=== PATIENT | female | born 1995 | race Caucasian/White ===

== ENCOUNTER 2016-10-25 10:32 | Emergency (ER) | payer OTHER ==
[~2016-10-25] VITALS: Ht 160 cm; Wt 81.7 kg
[~2016-10-25 10:32] MED LIST: BACTRIM DS TAB1 EACH PO; BENTYL 20 MG TA20 M1 PO; BIRTH CONTROL PATCH; DIFLUCAN150 MG PO; MACROBID 100 M100 M1 PO; MOBIC15 MG PO; ONDANSETRON HCL4 M2 PO; PHENERGAN 25 MG25 M1 PO; PROTONIX40 MG PO; TRAMADOL 50 MG50 MG PO; ULTRAM 50MG TAB50 MG PO; ZANTAC 150MG T150 MG PO; ZOFRAN 4 MG ORAL4 MG PO; ZOFRAN ODT4 M1 PO; ZPAK PO
[2016-10-25] MEDS ORDERED: PHENERGAN 25 MG25 M1 PO (10:58)
[2016-10-25 11:08] LABS: ABSOLUTE NEUTROPHILS 10.1 thou/uL (1.4-8.2); BASOPHILS 0.3 % (0.0-2.0); EOSINOPHILS 2.1 % (0.0-3.0); HEMATOCRIT 44.8 % (37.0-47.0); HEMOGLOBIN 14.4 gm/dL (12.0-15.0); LYMPHOCYTES 12.8 % (24.0-44.0); MCH 27.5 pg (26.0-34.0); MCHC 32.1 % (28.0-37.0); MCV 85.4 fL (80.0-100.0); MONOCYTES 5.6 % (1.0-8.0); PLATELET COUNT 267 thou/uL (150-400); POLYS 79.2 % (36.0-66.0); RBC 5.25 mil/uL (4.20-5.00); RDW 14.3 % (10.5-14.5); WBC 12.7 thou/uL (4.0-11.0)
[2016-10-25 11:09] LABS: MANUAL DIFF NO
[2016-10-25 11:17] LABS: CALCIUM 8.7 mg/dL (8.5-10.1); CREATININE 0.8 mg/dL (0.6-1.3); POTASSIUM 3.9 mmol/L (3.5-5.1)
[2016-10-25 11:23] LABS: ALBUMIN 4.1 g/dL (3.4-5.0); TOTAL BILIRUBIN 0.8 mg/dL (<0.1-1.0); TOTAL PROTEIN 8.3 g/dL (6.4-8.2)
[2016-10-25 11:36] LABS: URINE BILIRUBIN NEGATIVE (Negative); URINE BLOOD 1+ (Negative); URINE COLOR YELLOW; URINE GLUCOSE-RANDOM* NEGATIVE (Negative); URINE KETONES NEGATIVE (Negative); URINE NITRITE NEGATIVE (Negative); URINE PROTEIN (DIPSTICK) NEGATIVE (Negative); URINE SPECIFIC GRAVITY >= 1.030 (1.003-1.035); URINE UROBILINOGEN 0.2 E.U./dl (0.2-1.0)
[2016-10-25 11:42] LABS: BACTERIA >30 Many /HPF (None Seen); CASTS None Seen /LPF (None Seen); SQUAMOUS >10 Many /LPF (0-3); URINE RBC 3-10 Few /HPF (0-2); URINE WBC 0-5 Rare /HPF (0-5)
[2016-10-25 11:43] LABS: CRYSTALS None Seen /LPF (None Seen)
[2016-10-25] MEDS ORDERED: KEFLEX500 MG PO (11:44)
[2016-10-25] MEDS ORDERED: LEVSIN0.125 MG PO (11:45)
[2016-10-25 12:01] VITALS: BP 122/78
[2016-11-24] MEDS ORDERED: MUCINEX TA600 MG/TA2 PO (07:19)
[2016-11-24] MEDS ORDERED: AMOXICILLIN 50500 MG PO (07:19)
[2016-11-24] MEDS ORDERED: PREDNISONE 10 M10 MG PO (07:21)
[2016-11-24] MEDS ORDERED: ACETAMINOPHEN-1 EAC1 PO (07:44)
[2016-11-24] MEDS ORDERED: TESSALON PERLE100 MG PO (07:44)
[2016-12-04] MEDS ORDERED: PHENERGAN 25 MG25 M1 PO (00:50)
[2016-12-04] MEDS ORDERED: ZOFRAN ODT4 MG PO (00:50)
== END 2016-10-25 12:02 | disposition home or self-care (01) ==
LOC: ER 10:32
PROVIDERS: Physician Assistant
DX: R11.2 Nausea with vomiting, unspecified (principal); R19.7 Diarrhea, unspecified; R10.9 Unspecified abdominal pain

== ENCOUNTER 2017-02-01 10:00 | Emergency (ER) | payer OTHER ==
[~2017-02-01] VITALS: Ht 160 cm; Wt 45.4 kg
[~2017-02-01 10:00] MED LIST changes: +ACETAMINOPHEN-1 EAC1 PO; +AMOXICILLIN 50500 MG PO; +IBUPROFEN 800800 M1 PO; +KEFLEX500 MG PO; +LEVSIN0.125 MG PO; +MUCINEX TA600 MG/TA2 PO; +NOHOMEMEDICATIONS; +PREDNISONE 10 M10 MG PO; +TESSALON PERLE100 MG PO; +ZOFRAN ODT4 MG PO
[2017-02-01] MEDS ORDERED: BACTRIM DS TAB1 EACH PO (10:29)
[2017-02-01 10:40] VITALS: BP 115/73
== END 2017-02-01 10:41 | disposition home or self-care (01) ==
LOC: ER 10:00
DX: L02.211 Cutaneous abscess of abdominal wall (principal); Z88.6 Allergy status to analgesic agent; W57.XXXA Bitten or stung by nonvenomous insect and other nonvenomous arthropods, initial encounter; Y93.89 Activity, other specified; Y92.89 Other specified places as the place of occurrence of the external cause; Y99.8 Other external cause status

== ENCOUNTER 2017-02-02 22:05 | Emergency (ER) | payer OTHER ==
[~2017-02-02] VITALS: Ht 160 cm; Wt 90.7 kg
[2017-02-02 22:28] LABS: URINE BILIRUBIN NEGATIVE (Negative); URINE BLOOD TRACE (Negative); URINE COLOR YELLOW; URINE GLUCOSE-RANDOM* NEGATIVE (Negative); URINE KETONES NEGATIVE (Negative); URINE NITRITE NEGATIVE (Negative); URINE PROTEIN (DIPSTICK) NEGATIVE (Negative); URINE SPECIFIC GRAVITY >= 1.030 (1.003-1.035); URINE UROBILINOGEN 0.2 E.U./dl (0.2-1.0)
[2017-02-02 22:54] LABS: SQUAMOUS >10 Many /LPF (0-3)
[2017-02-02 22:55] LABS: CASTS None Seen /LPF (None Seen); CRYSTALS None Seen /LPF (None Seen); URINE RBC 0-2 Rare /HPF (0-2); URINE WBC >25 Many /HPF (0-5)
[2017-02-02 23:45] LABS: ABSOLUTE NEUTROPHILS 11.7 thou/uL (1.4-8.2); BASOPHILS 0.2 % (0.0-2.0); EOSINOPHILS 0.6 % (0.0-3.0); HEMATOCRIT 39.2 % (37.0-47.0); HEMOGLOBIN 12.9 gm/dL (12.0-15.0); LYMPHOCYTES 15.3 % (24.0-44.0); MCH 27.6 pg (26.0-34.0); MCHC 32.8 g/dL (28.0-37.0); MCV 84.2 fL (80.0-100.0); MONOCYTES 5.3 % (1.0-8.0); PLATELET COUNT 259 thou/uL (150-400); POLYS 78.6 % (36.0-66.0); RBC 4.66 mil/uL (4.20-5.00); RDW 14.3 % (10.5-14.5); WBC 14.9 thou/uL (4.0-11.0)
[2017-02-02 23:49] LABS: MANUAL DIFF NO
[2017-02-02 23:53] LABS: ANION GAP 7 mmol/L (7-16); BUN 13 mg/dL (7-18); CALCIUM 8.1 mg/dL (8.5-10.1); CHLORIDE 103 mmol/L (98-107); CO2 26 mmol/L (21-32); GLUCOSE 89 mg/dL (74-106); POTASSIUM 3.9 mmol/L (3.5-5.1); SODIUM 136 mmol/L (136-145)
[2017-02-02 23:57] LABS: ALBUMIN 3.7 g/dL (3.4-5.0); ALKALINE PHOSPHATASE 109 U/L (46-116); DIRECT BILIRUBIN < 0.1 mg/dL (<0.1-0.3); SGOT 19 U/L (15-37); SGPT 16 U/L (30-65); TOTAL BILIRUBIN 0.4 mg/dL (<0.1-1.0); TOTAL PROTEIN 7.4 g/dL (6.4-8.2)
[2017-02-03] MEDS ORDERED: ZOFRAN ODT4 MG PO (00:20)
[2017-02-03 01:15] VITALS: BP 97/52
== END 2017-02-03 01:15 | disposition home or self-care (01) ==
LOC: ER 22:05
PROVIDERS: Emergency Medicine
DX: R19.7 Diarrhea, unspecified (principal); R51 Headache; D72.828 Other elevated white blood cell count; R10.9 Unspecified abdominal pain; R11.0 Nausea; Z88.6 Allergy status to analgesic agent

== ENCOUNTER 2017-02-28 07:57 | Emergency (ER) | payer OTHER ==
[~2017-02-28] VITALS: Ht 160 cm; Wt 86.2 kg
[2017-02-28] MEDS ORDERED: BENADRYL25 MG PO (08:07)
[2017-02-28 08:30] VITALS: BP 122/73
[2017-02-28] MEDS ORDERED: PREDNISONE 20 M20 MG PO (08:39)
== END 2017-02-28 08:53 | disposition home or self-care (01) ==
LOC: ER 07:57
DX: L25.9 Unspecified contact dermatitis, unspecified cause (principal); Z88.1 Allergy status to other antibiotic agents

== ENCOUNTER 2017-03-19 21:57 | Emergency (ER) | payer OTHER ==
[~2017-03-19] VITALS: Ht 160 cm; Wt 90.7 kg
[~2017-03-19 21:57] MED LIST changes: +BENADRYL25 MG PO; +PREDNISONE 20 M20 MG PO
[2017-03-19 21:58] VITALS: BP 108/65
[2017-03-19] MEDS ORDERED: BACTRIM DS TAB1 EACH PO (22:10)
== END 2017-03-19 22:11 | disposition home or self-care (01) ==
LOC: ER 21:57
DX: L02.416 Cutaneous abscess of left lower limb (principal); Z88.6 Allergy status to analgesic agent

== ENCOUNTER 2017-06-29 08:31 | Emergency (ER) | payer OTHER ==
[~2017-06-29] VITALS: Ht 160 cm; Wt 89.4 kg
[2017-06-29] MEDS ORDERED: ONDANSETRON HCL4 M2 PO (08:43)
[2017-06-29] MEDS ORDERED: PRENATE ELITE1 EACH PO (08:43)
[2017-06-29] MEDS ORDERED: PROGESTERONE100 MG PO (08:43)
[2017-06-29 09:02] LABS: ABSOLUTE NEUTROPHILS 5.1 thou/uL (1.4-8.2); BASOPHILS 0.7 % (0.0-2.0); EOSINOPHILS 0.6 % (0.0-3.0); HEMOGLOBIN 12.3 gm/dL (12.0-15.0); MCH 28.3 pg (26.0-34.0); MCHC 33.3 g/dL (28.0-37.0); MCV 84.8 fL (80.0-100.0); MONOCYTES 5.8 % (1.0-8.0); PLATELET COUNT 235 thou/uL (150-400); POLYS 63.9 % (36.0-66.0); RBC 4.37 mil/uL (4.20-5.00); RDW 14.8 % (10.5-14.5)
[2017-06-29 09:03] LABS: MANUAL DIFF NO
[2017-06-29 09:10] LABS: CALCIUM 9.1 mg/dL (8.5-10.1); CREATININE 0.9 mg/dL (0.6-1.0); POTASSIUM 3.7 mmol/L (3.5-5.1)
[2017-06-29 09:33] LABS: URINE BILIRUBIN NEGATIVE (Negative); URINE BLOOD 3+ (Negative); URINE COLOR YELLOW; URINE GLUCOSE-RANDOM* NEGATIVE (Negative); URINE KETONES NEGATIVE (Negative); URINE PROTEIN (DIPSTICK) NEGATIVE (Negative); URINE UROBILINOGEN 0.2 E.U./dl (0.2-1.0)
[2017-06-29 09:34] LABS: URINE LEUKOCYTES-REFLEX 1+ (Negative)
[2017-06-29 09:42] LABS: CASTS None Seen /LPF (None Seen); CRYSTALS None Seen /LPF (None Seen); SQUAMOUS 4-10 Moderate /LPF (0-3)
[2017-06-29 09:44] LABS: URINE RBC 0-2 Rare /HPF (0-2); URINE WBC-REFLEX 6-15 Few /HPF (0-5)
[2017-06-29] MEDS ORDERED: KEFLEX500 MG PO (11:33)
[2017-06-29 11:41] VITALS: BP 121/55
[2017-06-30 17:10] LABS: CHLAMYDIA TRACHOMATIS-PCR Negative (Negative); NEISSERIA GONORRHEA-PCR Negative (Negative)
== END 2017-06-29 11:49 | disposition home or self-care (01) ==
LOC: ER 08:31
PROVIDERS: Emergency Medicine
DX: O46.91 Antepartum hemorrhage, unspecified, first trimester (principal); O23.41 Unspecified infection of urinary tract in pregnancy, first trimester; Z3A.08 8 weeks gestation of pregnancy; Z88.6 Allergy status to analgesic agent

== ENCOUNTER 2018-03-08 10:48 | Emergency (ER) | payer OTHER ==
[~2018-03-08] VITALS: Ht 162.6 cm; Wt 79.4 kg
[~2018-03-08 10:48] MED LIST changes: +KEFLEX500 M1 PO; +PRENATE ELITE1 EACH PO; +PROGESTERONE100 MG PO
[2018-03-08] MEDS ORDERED: KEFLEX500 M1 PO (12:15)
[2018-03-08] MEDS ORDERED: PREDNISONE 20 M20 MG PO (12:15)
[2018-03-08 12:54] VITALS: BP 108/62
== END 2018-03-08 12:55 | disposition home or self-care (01) ==
LOC: ER 10:48
DX: S40.861A Insect bite (nonvenomous) of right upper arm, initial encounter (principal); W57.XXXA Bitten or stung by nonvenomous insect and other nonvenomous arthropods, initial encounter; Y93.89 Activity, other specified; Y92.89 Other specified places as the place of occurrence of the external cause; Y99.8 Other external cause status

== ENCOUNTER 2018-07-17 11:13 | Emergency (ER) | payer OTHER ==
[~2018-07-17] VITALS: Ht 160 cm; Wt 90.7 kg
[2018-07-17] MEDS ORDERED: FLEXERIL PO (11:31)
[2018-07-17] MEDS ORDERED: MOBIC7.5 MG PO (11:31)
[2018-07-17] MEDS ORDERED: ULTRAM 50MG TAB50 MG PO (12:50)
[2018-07-17 13:02] VITALS: BP 101/54
== END 2018-07-17 13:03 | disposition home or self-care (01) ==
LOC: ER 11:13
DX: S16.1XXA Strain of muscle, fascia and tendon at neck level, initial encounter (principal); S80.11XA Contusion of right lower leg, initial encounter; R51 Headache; Z88.6 Allergy status to analgesic agent; V89.2XXA Person injured in unspecified motor-vehicle accident, traffic, initial encounter; Y92.89 Other specified places as the place of occurrence of the external cause; Y93.89 Activity, other specified; Y99.8 Other external cause status

== ENCOUNTER 2019-09-27 16:36 | Emergency (ER) | payer OTHER ==
[~2019-09-27] VITALS: Ht 160 cm; Wt 99.8 kg
[~2019-09-27 16:36] MED LIST changes: +FLEXERIL PO; +MOBIC7.5 MG PO
[2019-09-27 18:37] VITALS: BP 166/84
== END 2019-09-27 18:37 | disposition home or self-care (01) ==
LOC: ER 16:36
DX: S02.5XXA Fracture of tooth (traumatic), initial encounter for closed fracture (principal); Z88.6 Allergy status to analgesic agent; X58.XXXA Exposure to other specified factors, initial encounter; Y93.89 Activity, other specified; Y92.89 Other specified places as the place of occurrence of the external cause; Y99.8 Other external cause status

== ENCOUNTER 2020-03-12 09:16 | Emergency (ER) | payer OTHER ==
[~2020-03-12] VITALS: Ht 160 cm; Wt 99.8 kg
[2020-03-12 10:48] VITALS: BP 117/75
== END 2020-03-12 10:50 | disposition home or self-care (01) ==
LOC: ER 09:16
DX: S93.601A Unspecified sprain of right foot, initial encounter (principal); Z87.891 Personal history of nicotine dependence; Z88.8 Allergy status to other drugs, medicaments and biological substances; W17.2XXA Fall into hole, initial encounter; Y93.89 Activity, other specified; Y92.89 Other specified places as the place of occurrence of the external cause; Y99.8 Other external cause status